=== PATIENT | male | born 1945 | race Caucasian/White ===

== ENCOUNTER 2019-12-28 11:20 | Outpatient (CLI) | payer MEDICARE, SELFPAY ==
--- NOTE | 2019-12-28 11:24 | ECG_ITS ---
Measurements Intervals [place] Rate: 89 P: 64 RI: 165 QRS: 73 QRSD: 150 T: 31 QT: 379 QTc: 461 Interpretive Statements SINUS RHYTHM RIGHT BUNDLE BRANCH BLOCK MINIMAL Q WAVES- INFERIOR LEADS ABNORMAL ECG Electronically Signed On 12-28-2019 11:37:50 [employer]IL[employer]AY EQUIPMENT OPERATOR by Franko Garcia D.O.
== END 2019-12-28 11:21 | disposition home or self-care (01) ==
LOC: ANHSURGERY 11:24
PROVIDERS: PCP Internal Medicine; Visit Provider Urology
DX: I10 Essential (primary) hypertension (principal); Z01.818 Encounter for other preprocedural examination; I45.10 Unspecified right bundle-branch block
CPT/HCPCS: 93005

== ENCOUNTER 2019-12-31 01:29 | Outpatient (CLI) | payer MEDICARE, SELFPAY ==
[2019-12-31 20:39] LABS: SARS-CoV-2 RNA PCR Negative
== END 2019-12-31 01:30 | disposition home or self-care (01) ==
LOC: ANHCOVIDDT 01:30
PROVIDERS: PCP Internal Medicine; Visit Provider Urology
DX: Z01.812 Encounter for preprocedural laboratory examination (principal); Z20.828 Contact with and (suspected) exposure to other viral communicable diseases
CPT/HCPCS: 87635; C9803; U0003

== ENCOUNTER 2020-01-03 01:26 | Day surgery (SDC) | payer MEDICARE, SELFPAY ==
[2019-12-28 08:42] VITALS: BMI 26.9
--- NOTE | 2019-12-31 07:54 | P.HP_ITS ---
History of Present Illness History of Present Illness Consent: Risks, benefits, and alternatives have been discussed and questions answered. Patient agrees to proceed with procedure. Chief complaint: prostate CA Narrative: Rolf Lyn is a 74 year old male Recently evaluated for an elevated PSA and found, on prostate biopsy, to have 2 of 12 cores with [place] score 6 prostate cancer. He has elected for definitive pelvic radiation and presents today for placement of spaceOAR. Review of Systems Cardiovascular: Cardiovascular: Denies chest pain, Denies lightheadedness, Denies palpitations and Denies dyspnea Respiratory: Respiratory: Denies dyspnea Gastrointestinal: Gastrointestinal: Denies diarrhea, Denies nausea and Denies vomiting Genitourinary: Genitourinary: Denies hematuria and Denies dysuria Endocrine: Endocrine: Denies palpitations PMFSH Family History Family History Father Cerebrovascular accident Social History Social History Smoking status: Former smoker Tobacco type: cigarettes Smoking end date: 07/22/13 Additional smoking assessment comments: STATES 1/2PK/DAY/46YRS Alcohol intake: current Drinks per week: 14 Substance use: never Spiritual care concerns: No Meds Home Medications and Allergies Home Medications Medication Instructions Recorded Confirmed Type cholecalciferol (vitamin D3) 100 mcg PO DAILY 12/28/19 12/28/19 History cranberry extract 500 mg PO DAILY 12/28/19 12/28/19 History lisinopril 5 mg DAILY 12/28/19 12/28/19 History multivitamin with iron-mineral 1 tablet PO DAILY 12/28/19 12/28/19 History [Multi M Vitamin] rosuvastatin 10 mg DAILY 12/28/19 12/28/19 History vitamin E 400 unit PO DAILY 12/28/19 12/28/19 History Allergies Allergy/AdvReac Type Severity Reaction Status Date / Time No Known Allergies Allergy Verified 12/28/19 08:37 Exam Const: General: no acute distress Resp: Effort & Inspection: normal respiratory effort GI: Inspection: non-distended GI Palp: No abdominal tenderness and No Guarding due to palpation present (GI) Auscultation: normal bowel sounds Assessment and Plan Assessment and plan (1) Prostate cancer: Code(s): C61 - Malignant neoplasm of prostate Status: Acute Assessment and Plan: * Transrectal ultrasound with transperineal placement of SpaceOAR. Pt. aware of risks of this procedure including, but not limited to, rectal injury, urinary tract infection with possible sepsis or septic shock, hematuria and inability to deliver the SpaceOAR. He also aware there is no alternative procedure to accomplish the same ends at this time.
[2020-01-03] VITALS (7 sets, daily range): BP systolic 129–158; BP diastolic 70–87; PULSE 81–110; RESP 14–21; TEMP 36.6; O2SAT 94–100
--- NOTE | 2020-01-03 06:28 | WPDHPUPDATE1 ---
History and Physical Update Update Date/Time: 01/03/20 06:28 History and Physical has been reviewed, including an updated exam of the patient. There are NO changes in the patient's condition. Risks, benefits, and alternatives have been discussed and questions answered. Patient agrees to proceed with procedure.
[2020-01-03] MEDS: LACTATED RINGERS 1,000 ML 30 ML IV CONT (11:47)
--- NOTE | 2020-01-03 11:55 | WPDANESEPPF ---
Anes - Initial Pre Proc Eval Procedure: Operation Date: 01/03/20 13:30 Proposed Procedures p Insertion SpaceOAR Hydrogel System - Sae Boyle MD Date/Time: 01/03/20 11:55 Surgeon: Sae Boyle MD Pre Op Diagnosis: prostate CA Patient Data Age: 74 Gender: M Height: 6 ft 3 in Weight: 97.7 kg Allergies Allergy/AdvReac Type Severity Reaction Status Date / Time No Known Allergies Allergy Verified 12/28/19 08:37 Home Medications Medication Instructions Recorded Confirmed Type cholecalciferol (vitamin D3) 100 mcg PO DAILY 12/28/19 12/28/19 History cranberry extract 500 mg PO DAILY 12/28/19 12/28/19 History lisinopril 5 mg DAILY 12/28/19 12/28/19 History multivitamin with iron-mineral 1 tablet PO DAILY 12/28/19 12/28/19 History [Multi M Vitamin] rosuvastatin 10 mg DAILY 12/28/19 12/28/19 History vitamin E 400 unit PO DAILY 12/28/19 12/28/19 History Patient hx anesthesia problems: none Family hx anesthesia problems: none PMFSH Past Medical History Medical History Hyperlipidemia Hypertension Prostate cancer Family History Family History Father Cerebrovascular accident Social History Social History Smoking status: Smoker, status unknown Tobacco type: cigarettes Smoking end date: 07/22/13 Additional smoking assessment comments: STATES 1/2PK/DAY/46YRS Alcohol intake: current Drinks per week: 14 Substance use: never Living arrangements: with family Spiritual care concerns: No Anes - Eval Final PreProcedure Day of Procedure 01/03/20 11:55 Patient weight: overweight Heart: regular rate and rhythm Lungs: decreased breath sounds Airway: Mallampati scale class II Neurological: alert and oriented ASA classification: III Emergent: no Anesthetic plan: proceed Anesthesia type and monitoring: general GIVS and standard monitoring Informed Consent: The patient's anesthetic plan and its attendant risks and benefits were discussed with the patient/family/POA. Questions were solicited and answers provided to the satisfaction of the patient/family/POA.
[2020-01-03] MEDS: ceFAZolin 2 GM/D5W 50 ML 2 GM/50 ML BAG IVPB (12:37)
--- NOTE | 2020-01-03 13:02 | P.OP_ITS ---
Procedure Note - Detailed Date of procedure: 01/03/20 Pre-op diagnosis: prostate CA Post-op diagnosis: same Procedure performed: Insertion SpaceOAR Description of procedure: This patient has been diagnosed with prostate cancer. Patient has met with a radiation oncologist who has prescribed a course of radiation for treatment of the malignancy. Please refer to the Radiation Oncologist's note for radiation method, dose, number of fractions. After discussing with the radiation oncologist and the patient, it has been agreed upon to proceed with SpaceOAR placement. The purpose of SpaceOAR is to reduce rectal irradiation during radiation therapy by placing an absorbable polyethylene glycol (PEG) hydrogel (SpaceOAR) into perirectal fat space, thereby pushing the rectum away from the prostate. Prior to the procedure, a timeout was performed confirming the patient's identity and planned the procedure. Anesthesia was induced without complication. Antibiotics were administered prophylactically, and the patient completed an enema at home prior to the procedure. The patient was positioned in the dorsal lithotomy position. A transrectal ultrasound probe was inserted per rectum with clear visualization of the prostatic base and apex. SpaceOAR hydrogel was prepared as described in the metal fabrication supervisor?s 'Instructions For Use'. Under transrectal ultrasound guidance, a 15 cm 18G needle was inserted, transperineal, through the rectourethralis muscle and the needle tip advanced into the perirectal fat posterior to the prostate. The needle position, and downward bevel, were confirmed in both sagittal and axial tay. 3-5cc [address] St erile Saline was used to hydro-dissect the space between the [place]onvilliers? fascia and anterior rectal wall. Aspiration did not yield any bleeding. With the needle tip at mid gland, the axial field was viewed to confirm the needle was not in the rectal wall -- movement of the needle tip without corresponding movement of the rectal wall confirmed perirectal placement. The assembled SpaceOAR delivery system was then attached to the 18G needle. Under ultrasound guidance in the sagittal plane, a smooth, continuous injection technique was used to dispense all 10cc of the SpaceOAR hydrogel into the space between the prostate and rectum. Optimal visualization of the needle during hydrogel administration was maintained at all times. An axial measurement of the space between the prostate (mid gland) and rectum immediately post-SpaceOAR injection was noted and measured [82mm]. No suspected penetration or compromise of the rectal wall occurred. Implants: SpaceOAR Anesthesia: MAC Surgeon: Sae Boyle MD Estimated blood loss (mL): 0 Drains: No Packing: No Pathology: none sent Complications: No immediate complications Condition: stable Disposition: PACU
== END 2020-01-03 14:15 | disposition home or self-care (01) ==
PROVIDERS: PCP Internal Medicine; Visit Provider Urology
PROC: (CPT 55874; principal; 2020-01-03 13:30)
DX: C61 Malignant neoplasm of prostate (principal); I10 Essential (primary) hypertension; E78.5 Hyperlipidemia, unspecified; Z87.891 Personal history of nicotine dependence
CPT/HCPCS: 55874; A9270; C1889; J0690; J1100; J2405; J2704; J7120

== ENCOUNTER → 2021-06-01 07:16 | Outpatient (REF) | payer MEDICARE, SELFPAY | LOC: ANHLAB 07:16 | PROVIDERS: PCP Internal Medicine; Visit Provider Nurse Practitioner | DX: L90.5 Scar conditions and fibrosis of skin (principal) | CPT/HCPCS: 88305; 88331 ==